=== PATIENT | female | born 1960 | race Caucasian/White ===

== ENCOUNTER 2018-11-26 13:44 | Outpatient (CLI) | payer OTHER ==
--- NOTE | 2018-11-26 16:18 | MRI ---
MRI CERVICAL SPINE WITHOUT CONTRAST: 11/26/18 HISTORY: M54.2 - cervicalgia. Neck pain, radiating numbness in left arm and hand. COMPARISON: None. FINDINGS: The cerebellar tonsils terminate at the level of the foramen magnum. No marrow infiltrative process. There is mild increased fluid signal within the cord from C4-C6. There is, however, motion at this le natasha. The carotid and vertebral flow voids are maintained. No paraspinal muscle abnormal. Levels are as follows: C2-3: Mild disc desiccation. No neural foraminal or spinal canal narrowing. Mild facet arthrosis. C3-4: There is moderate posterior and moderate anterior degenerative height loss. Moderate uncinate process hypertrophy. Broad based posterior disc osteophyte complex. There is effacement of the ventra l CSF space. Narrowing of the canal of approximately 9 mm. There is moderate bilateral neural foramin al narrowing. C4-5: Severe degenerative disc space height loss. Circumferential disc osteophyte complex. Moderate u ncinate process hypertrophy. There is complete effacement of the ventral CSF space narrowing the spin al canal to approximately 7 mm. There appears to be some abutment of the ventral cord. There is moder ate bilateral neural foraminal narrowing. Mild facet arthropathy. C5-6: Moderate degenerative disc space height loss. Moderate uncinate process hypertrophy. There is a central posterior disc osteophyte complex, small. There is mild ligamentous flavum hypertrophy. Spin al canal measures approximately 6 mm. there is complete effacement of the ventral CSF space with poss ible cord abutment. Moderate bilateral neural foraminal narrowing. C6-7: There is a mild uncinate process hypertrophy. There is a right subforaminal lateral recess post erior disc osteophyte complex. Low grade posterior disc bulge. Mild effacement of the ventral CSF spa ce. Spinal canal measuring 8 mm. Mild bilateral neural foraminal narrowing. IMPRESSION: 1. Mild to moderate spondylosis as described above, worst at C3-4. 2. Narrowing of the spinal canal at multiple levels with complete effacement of the CSF space at C4-5 and C5-6 with mild increased fluid signal of the cord which could reflect a myelomalacia. POS: [facility]
== END 2018-11-26 13:45 | disposition home or self-care (01) ==
LOC: TBSIIMAG 13:44
PROVIDERS: ATTEND Chiropractor
DX: M51.36 Other intervertebral disc degeneration, lumbar region (principal); M54.5 Low back pain; M54.2 Cervicalgia; M62.830 Muscle spasm of back; M47.812 Spondylosis without myelopathy or radiculopathy, cervical region; M48.02 Spinal stenosis, cervical region
CPT/HCPCS: 72141